=== PATIENT | male | born 1995 ===

== ENCOUNTER 2021-07-21 14:49 | Emergency (ER) | payer MEDICAID ==
[~2021-07-21] VITALS: Ht 172.7 cm; Wt 63.0 kg
[2021-07-21] MEDS ORDERED: KEFLEX500 MG PO (16:05)
[2021-07-21 16:25] VITALS: BP 140/72
--- NOTE | 2021-07-23 16:13 | NUR ---
Attempted to contact patient in regards to discharged medication. Patient was not able to be reached.
== END 2021-07-21 16:25 | disposition home or self-care (01) ==
LOC: ED 14:49
DX: L03.011 Cellulitis of right finger (principal)